=== PATIENT | male | born 1965 | race Caucasian/White ===

== ENCOUNTER → 2017-10-22 | Outpatient (CLI) | payer OTHER ==
--- NOTE | 2017-10-22 10:10 | RADRPT ---
EXAM DATE/TIME: 10/22/2017 09:41 [place] COMPARISON: No previous studies available for comparison. INDICATIONS : Palpitations MEDICAL HISTORY : None. SURGICAL HISTORY : None. ENCOUNTER: Initial ACUITY: 1 day PAIN SCORE: 0/10 LOCATION: chest FINDINGS: PA and lateral views of the chest demonstrate the lungs to be symmetrically aerated without evidence of mass, infiltrate or effusion. The cardiomediastinal contours are unremarkable. Osseous structure s are intact. Incidental note is made of an old, healed right clavicular fracture. CONCLUSION: 1. No acute cardiopulmonary findings identified. Eron Mancia MD on October 22, 2017 at 10:06 Board Certified Radiologist. This report was verified electronically.
== END ==
LOC: HRAD 09:22
PROVIDERS: ATTEND Family Medicine
DX: R00.2 Palpitations (principal)
CPT/HCPCS: 71046